=== PATIENT | female | born 1980 | race Caucasian/White ===

== ENCOUNTER 2017-08-08 21:54 | Emergency (ER) | payer SELFPAY ==
[~2017-08-08] VITALS: Ht 170.2 cm; Wt 94.8 kg
[2017-08-08 21:56] VITALS: BP 121/81
== END 2017-08-08 22:46 | disposition left against medical advice (07) ==
LOC: EME 21:54
DX: Z53.21 Procedure and treatment not carried out due to patient leaving prior to being seen by health care provider (principal)